=== PATIENT | female | born 1985 | race African-American/Black ===

== ENCOUNTER 2021-06-21 00:23 | Emergency (ER) | payer SELFPAY ==
[~2021-06-21] VITALS: Ht 170.2 cm; Wt 67.7 kg
[2021-06-21] MEDS ORDERED: CYCL5TAB MT (02:30)
[2021-06-21 02:50] VITALS: BP 135/83
== END 2021-06-21 02:40 | disposition home or self-care (01) ==
LOC: ER 00:23
DX: S16.1XXA Strain of muscle, fascia and tendon at neck level, initial encounter (principal); S80.01XA Contusion of right knee, initial encounter; M54.89 Other dorsalgia; M25.511 Pain in right shoulder; M25.579 Pain in unspecified ankle and joints of unspecified foot; V44.5XXA Car driver injured in collision with heavy transport vehicle or bus in traffic accident, initial encounter; Y93.89 Activity, other specified; Y92.488 Other paved roadways as the place of occurrence of the external cause
CPT/HCPCS: 73562; 81025; 99283

== ENCOUNTER 2021-10-08 20:47 | Emergency (ER) | payer SELFPAY ==
[~2021-10-08] VITALS: Ht 167.6 cm; Wt 71.0 kg
[~2021-10-08 20:47] MED LIST: CYCL5TAB MT
[2021-10-08] MEDS ORDERED: CLINDAMYCIN 600 MG in DEXTROSE 5% WATER 50 ML IV ONE (22:30)
[2021-10-08] MEDS ORDERED: SODIUM CHLORIDE 0.9% 1,000 ML IV ONE (22:30)
[2021-10-08] MEDS ORDERED: KETOROLAC 15MG/ML VIAL IV ONE (22:30)
[2021-10-08] MEDS ORDERED: CEFTRIAXONE 2 G PREMIX 50 ML IV ONE (22:30)
[2021-10-08] MEDS ORDERED: DEXAMETHASONE 10 MG/ML VIAL IV ONE (22:30)
[2021-10-08] MEDS ORDERED: CLINDAMYCIN 600MG PREMIX 50 ML IV NR (23:15)
[2021-10-09 01:23] VITALS: BP 126/82
[2021-10-09] MEDS ORDERED: CLIN300C12 MT (01:28)
[2021-10-09] MEDS ORDERED: IBUP-2030 MT (01:28)
[2021-10-09] MEDS ORDERED: HYDR-4001 MT (01:28)
== END 2021-10-09 01:39 | disposition home or self-care (01) ==
LOC: ER 20:47
DX: J36 Peritonsillar abscess (principal)
CPT/HCPCS: 42700; 96374; 96375; 99284; J0696; J1100; J1885; J3490; J7030; J7060

== ENCOUNTER 2022-07-09 18:17 | Emergency (ER) | payer SELFPAY ==
[~2022-07-09] VITALS: Ht 167.6 cm; Wt 91.0 kg
[~2022-07-09 18:17] MED LIST changes: +CLIN-194 MT; +HYDR-4001 MT; +IBUP-2030 MT
[2022-07-09 18:39] VITALS: BP 137/81
[2022-07-09] MEDS ORDERED: CYCLOBENZAPRINE 10MG TABLET PO ONE (19:00)
[2022-07-09] MEDS ORDERED: ACETAMINOPHEN 325MG TABLET PO ONE (19:00)
[2022-07-09] MEDS ORDERED: CYCL10TA21 MT (20:44)
[2022-07-09] MEDS ORDERED: IBUP-2029 MT (20:44)
== END 2022-07-09 21:06 | disposition home or self-care (01) ==
LOC: ER 18:17
DX: M54.2 Cervicalgia (principal); G89.11 Acute pain due to trauma; I10 Essential (primary) hypertension; S00.83XA Contusion of other part of head, initial encounter; V49.59XA Passenger injured in collision with other motor vehicles in traffic accident, initial encounter; Y93.89 Activity, other specified; Y92.89 Other specified places as the place of occurrence of the external cause
CPT/HCPCS: 99283

== ENCOUNTER 2024-06-22 06:21 | Emergency (ER) | payer OTHER ==
[~2024-06-22] VITALS: Ht 170.2 cm; Wt 78.0 kg
[~2024-06-22 06:21] MED LIST changes: +CYCL10TA21 MT; -CYCL5TAB MT; +CYCL5TAB3 MT; +IBUP-2029 MT
[2024-06-22 06:24] VITALS: O2SAT 100
[2024-06-22 06:35] VITALS: TEMP 98.6; O2SAT 100
[2024-06-22] MEDS ORDERED: IBUP-2030 PO (06:55)
[2024-06-22] MEDS ORDERED: AMOX1TAB16 PO (06:55)
[2024-06-22 07:24] VITALS: BP 127/78; PULSE 76; RESP 18
[2024-06-22] MEDS: KETOROLAC 30MG/ML VIAL IM ONE (07:24)
== END 2024-06-22 07:27 | disposition home or self-care (01) ==
LOC: ER 06:21
DX: K04.7 Periapical abscess without sinus (principal); Z79.899 Other long term (current) drug therapy
CPT/HCPCS: 99283; J1885